=== PATIENT | female | born 1930 | race Caucasian/White ===

== ENCOUNTER 2018-05-01 13:07 | Inpatient (IN) | payer MEDICARE, OTHER ==
[2018-05-01] VITALS (22 sets, daily range): BP systolic 84–112; BP diastolic 35–50; PULSE 82–105; RESP 13–22; TEMP 98.5–99.9; O2SAT 93–98
[~2018-05-01] VITALS: Ht 165.1 cm; Wt 68.4 kg
[2018-05-01] MEDS ORDERED: PIPERACIL-TAZO 4.5 GM PREMIX 100 ML IV STA (13:18)
[2018-05-01] MEDS ORDERED: VANCOMYCIN INJ 1,000 MG in SODIUM CHLOR 0.9% 250 ML INJ 250 ML IV STA (13:18)
[2018-05-01] MEDS ORDERED: SODIUM CHLOR 0.9% 1000 ML INJ 1,000 ML IV ONE ×3 (13:30→22:15)
[2018-05-01] MEDS ORDERED: ACETAMINOPHEN 325 MG TAB PO ONE ×2 (13:30→13:45)
--- NOTE | 2018-05-01 13:30 | PD ---
HPI Chief Complaint: General Weakness Time Seen by Provider: 13:11 Travel History International Travel<30 days: No Contact w/Intl Traveler<30days: No Traveled to known affect area: No History of Present Illness HPI 87 y/o female presents with generalized weakness. She states this morning she had an episode of nonbloody vomiting. She denies any specific pain or other concurrent complaints other than feeling off. In the ambulance she had a fever. She states she did not really she had a fever. She denies specific modifying factors. She denies recurrent history of this. Patient is a poor historian. [facility] Past Medical History High Cholesterol: Yes Coronary Artery Disease: Yes Hypertension: Yes Influenza Vaccination: No ?: Not Past Surgical History Coronary Artery Bypass Graft: Yes Joint Replacement: Yes (KNEE) Social History Alcohol Use: No Tobacco Use: No Substance Use: No Allergies-Medications (Allergen,Severity, Reaction): Coded Allergies: No Known Allergies (Unverified , 05/01/18) Reported Meds & Prescriptions Reported Meds & Active Scripts Active Reported Aspirin 81 Mg Chew Unknown Dose CHEW DAILY Simvastatin 5 Mg Tab Unknown Dose PO DAILY Metoprolol Tartrate 25 Mg Tab Unknown Dose PO BID Furosemide 20 Mg Tab Unknown Dose PO BID Tramadol (Tramadol HCl) 50 Mg Tab Unknown Dose PO Q4H PRN Review of Systems Except as stated in HPI: all other systems reviewed are Neg Physical Exam Exam Limitations: Poor Historian Narrative GENERAL: 87-year-old female in no apparent distress SKIN: Focused skin assessment warm/dry. HEAD: Atraumatic. Normocephalic. EYES: Pupils equal and round. No scleral icterus. No injection or drainage. ENT: No nasal bleeding or discharge. Mucous membranes pink and moist. NECK: Trachea midline. CARDIOVASCULAR: Regular rate and rhythm. RESPIRATORY: No accessory muscle use. Clear to auscultation. Breath sounds equal bilaterally. GASTROINTESTINAL: Abdomen soft, non-tender, nondistended. MUSCULOSKELETAL: No obvious deformities. No clubbing. No cyanosis. NEUROLOGICAL: Awake. Moves all extremities. Normal speech. Data Data Last Documented VS Vital Signs Date Time Temp Pulse Resp B/P (MAP) Pulse Ox O2 Delivery O2 Flow Rate FiO2 05/01/18 16:07 98.7 96 16 96/49 (65) 94 Room Air Orders Orders Sepsis Workup Initiated (05/01/18 ) Electrocardiogram (05/01/18 13:11) Complete Blood Count With Diff (05/01/18 13:11) Comprehensive Metabolic Panel (05/01/18 13:11) Prothrombin Time / Inr (Pt) (05/01/18 13:11) Act Partial Throm Time (Ptt) (05/01/18 13:11) Lactic Acid Sepsis Protocol (05/01/18 13:11) Magnesium (Mg) (05/01/18 13:11) Phosphorus (Po4) (05/01/18 13:11) Urinalysis - C+S If Indicated (05/01/18 13:11) Blood Culture (05/01/18 13:11) Chest, Single Ap (05/01/18 13:11) Ecg Monitoring (05/01/18 13:11) Iv Access Insert/Monitor (05/01/18 13:11) Oximetry (05/01/18 13:11) B-Type Natriuretic Peptide (05/01/18 13:11) Vancomycin Inj (Vancomycin Inj) (05/01/18 13:18) Piperacil-Tazo 4.5 Gm Premix (Zosyn 4.5 (05/01/18 13:18) Sodium Chlor 0.9% 1000 Ml Inj (Ns 1000 M (05/01/18 13:30) Acetaminophen (Tylenol) (05/01/18 13:30) Ondansetron Odt (Zofran Odt) (05/01/18 13:45) Acetaminophen (Tylenol) (05/01/18 13:45) Cath For Specimen (05/01/18 14:20) Sodium Chlor 0.9% 1000 Ml Inj (Ns 1000 M (05/01/18 14:45) Urinary Catheter Insert/Apply (05/01/18 14:34) Ct Abd/Pel W Iv Contrast(Rout) (05/01/18 ) Urine Culture (05/01/18 14:50) Iodixanol 320 Inj (Rad Ct) (Visipaque 32 (05/01/18 15:41) Admit Order (Ed Use Only) (05/01/18 16:33) Place In Observation (05/01/18 ) Vital Signs (Adult) Q4H (05/01/18 16:33) Production Recorder / Telemetry .CONTINUOUS (05/01/18 16:33) Diet Heart Healthy (05/01/18 Dinner) Sodium Chlor 0.45% 1000 Ml Inj (1/2 Ns 1 (05/01/18 16:33) Sodium Chloride 0.9% Flush (Ns Flush) (05/01/18 16:45) Sodium Chloride 0.9% Flush (Ns Flush) (05/01/18 21:00) Acetaminophen (Tylenol) (05/01/18 16:45) Metoclopramide Inj (Reglan Inj) (05/01/18 16:45) Comprehensive Metabolic Panel (05/02/18 06:00) Complete Blood Count With Diff (05/02/18 06:00) Resp Oxygen Luiz C Titrat 1-4 L (05/01/18 ) Pt Request For Service (05/01/18 16:33) Scd Bilateral/Knee High STEVO.BID (05/01/18 16:33) Naloxone Inj (Narcan Inj) (05/01/18 16:45) Docusate Sodium-Senna (Amaya-Colace) (05/01/18 21:00) Magnesium Hydroxide Liq (Milk Of Magnesi (05/01/18 16:45) Sennosides (Senokot) (05/01/18 16:45) Bisacodyl Supp (Dulcolax Supp) (05/01/18 16:45) Lactulose Liq (Lactulose Liq) (05/01/18 16:45) Labs Laboratory Tests Test 05/01/18 13:10 05/01/18 13:15 05/01/18 14:50 White Blood Count 14.6 TH/MM3 Red Blood Count 2.84 MIL/MM3 Hemoglobin 9.0 GM/DL Hematocrit 26.8 % Mean Corpuscular Volume 94.5 FL Mean Corpuscular Hemoglobin 31.6 PG Mean Corpuscular Hemoglobin Concent 33.4 % Red Cell Distribution Width 13.2 % Platelet Count 226 TH/MM3 Mean Platelet Volume 8.4 FL Neutrophils (%) (Auto) 87.9 % Lymphocytes (%) (Auto) 2.2 % Monocytes (%) (Auto) 9.7 % Eosinophils (%) (Auto) 0.0 % Basophils (%) (Auto) 0.2 % Neutrophils # (Auto) 12.9 TH/MM3 Lymphocytes # (Auto) 0.3 TH/MM3 Monocytes # (Auto) 1.4 TH/MM3 Eosinophils # (Auto) 0.0 TH/MM3 Basophils # (Auto) 0.0 TH/MM3 CBC Comment DIFF FINAL Differential Comment Prothrombin Time 11.4 SEC Prothromb Time International Ratio 1.1 RATIO Activated Partial Thromboplast Time 24.3 SEC Blood Urea Nitrogen 37 MG/DL Creatinine 1.30 MG/DL Random Glucose 151 MG/DL Total Protein 6.8 GM/DL Albumin 3.5 GM/DL Calcium Level 9.0 MG/DL Phosphorus Level 2.0 MG/DL Magnesium Level 2.0 MG/DL Alkaline Phosphatase 59 U/L Aspartate Amino Transf (AST/SGOT) 25 U/L Alanine Aminotransferase (ALT/SGPT) 21 U/L Total Bilirubin 1.4 MG/DL Sodium Level 138 MEQ/L Potassium Level 3.5 MEQ/L Chloride Level 104 MEQ/L Carbon Dioxide Level 22.2 MEQ/L Anion Gap 12 MEQ/L Estimat Glomerular Filtration Rate 39 ML/MIN B-Type Natriuretic Peptide 208 PG/ML Lactic Acid Level 1.4 mmol/L Urine Collection Type CATH Urine Color YELLOW Urine Turbidity CLOUDY Urine pH 6.0 Urine Specific [place] 1.015 Urine Protein 100 mg/dL Urine Glucose (UA) NEG mg/dL Urine Ketones NEG mg/dL Urine Occult Blood LARGE Urine Nitrite NEG Urine Bilirubin NEG Urine Urobilinogen 0.2 MG/DL Urine Leukocyte Esterase SMALL Urine WBC 25-49 /hpf Urine WBC Clumps MOD Urine Squamous Epithelial Cells 0-2 /hpf Urine Bacteria MANY /hpf Microscopic Urinalysis Comment CULTURE INDICATED MDM Medical Decision Making Medical Screen Exam Complete: Yes Emergency Medical Condition: Yes Medical Record Reviewed: Yes (Past history confirmed) Interpretation(s) CBC & BMP Diagram 05/01/18 13:10 Total Protein 6.8, Albumin 3.5, Calcium Level 9.0, Phosphorus Level 2.0 L, Magnesium Level 2.0, Alkaline Phosphatase 59, Aspartate Amino Transf (AST/SGOT) 25, Alanine Aminotransferase (ALT/SGPT) 21, Total Bilirubin 1.4 H Last 24 hours Impressions Chest X-Ray 05/01/18 1311 Signed Impressions: CONCLUSION: Cardiomegaly with minimal basilar atelectasis or scarring. No effusion. No pneu mothorax. Differential Diagnosis UTI, URI, pneumonia, sepsis Narrative Course We will check blood work and dose with fluids and reevaluate ED workup with mild acute renal failure with sepsis and UTI no prior labs for comparison. Patient given fluids and broad-spectrum antibiotics and her blood pressure improved. CT added on to rule out other emergent process given hypotension ct no acute, will place in icu for close monitoring given hypotension Critical Care Narrative Aggregate critical care time was 35 minutes. Time to perform other separately billable procedures was not included in the critical care time. My time did not include minutes spent treating any other patients simultaneously or on activities that did not directly contribute to the patient's treatment. The services I provided to this patient were to treat and/or prevent clinically significant deterioration that could result in: Septic shock, I provided critical care services requiring my management, as noted below: Chart data review, documentation time, medication orders and management, vital sign assessments/reviewing monitor data, ordering and reviewing lab tests, ordering and interpreting/reviewing x-rays and diagnostic studies, care of the patient and discussion of the patient with the admitting physicians. Sepsis Criteria SIRS Criteria (2 or more): Heart rate over 90, WBC > 30993, < 4000 or > 10% bands Sepsis Criteria (SIRS+source): Infect source susp/known Severe Sepsis (+one): Hypotension Criteria Outcome: Meets severe sepsis criteria Physician Communication Physician Communication midlevel with dr rogers agrees to admit Diagnosis Primary Impression: Severe sepsis Additional Impressions: Renal failure Qualified Codes: N17.9 - Acute kidney failure, unspecified UTI (urinary tract infection) Qualified Codes: N39.0 - Urinary tract infection, site not specified Anemia Qualified Codes: D64.9 - Anemia, unspecified Admitting Information Admitting Physician Requests: it Irma Kerr MD May 01, 2018 13:30
[2018-05-01] MEDS ORDERED: METO25TA3 PO (13:34)
[2018-05-01] MEDS ORDERED: ASPI-516 CHEW (13:34)
[2018-05-01] MEDS ORDERED: TRAM50TA PO (13:34)
[2018-05-01] MEDS ORDERED: SIMV5TAB3 PO (13:34)
[2018-05-01] MEDS ORDERED: FURO20TA PO (13:34)
[2018-05-01] MEDS ORDERED: ONDANSETRON ODT 4 MG TAB PO ONE (13:45)
[2018-05-01 13:46] LABS: AUTOMATED NEUTROPHIL # 12.9 TH/MM3 (1.8-7.7); BASOPHIL % 0.2 % (0.0-2.0); HEMATOCRIT 26.8 % (35.0-46.0); LYMPH % 2.2 % (9.0-44.0); LYMPHOCYTE # 0.3 TH/MM3 (1.0-4.8); MEAN CELL VOLUME 94.5 FL (80.0-100.0); MEAN CORPUSCULAR HEMOGLOBIN 31.6 PG (27.0-34.0); MEAN CORPUSCULAR HGB CONC 33.4 % (32.0-36.0); MEAN PLATELET VOLUME 8.4 FL (7.0-11.0); MONO % 9.7 % (0.0-8.0); MONOCYTE # 1.4 TH/MM3 (0-0.9); NEUT % 87.9 % (16.0-70.0); PLATELET COUNT 226 TH/MM3 (150-450); RED BLOOD COUNT 2.84 MIL/MM3 (4.00-5.30); RED CELL DISTRIBUTION WIDTH 13.2 % (11.6-17.2); WHITE BLOOD COUNT 14.6 TH/MM3 (4.0-11.0)
--- NOTE | 2018-05-01 13:50 | RADRPT ---
EXAM DATE: 05/01/2018 1:43 PM EDT AGE/SEX: 87 years / Female INDICATIONS: Short of breath, fever, weakness CLINICAL DATA: This is the patient's initial encounter. Patient reports that signs and symptoms have been present for 1 day and indicates a pain score of 0/10. MEDICAL/SURGICAL HISTORY: Cerebrovascular disease. CABG. COMPARISON: No prior exams available for comparison. FINDINGS: Minimal basilar atelectasis or scarring. Cardiomegaly. Previous sternotomy. Bilateral shoulder replac ement. CONCLUSION: Cardiomegaly with minimal basilar atelectasis or scarring. No effusion. No pneumothorax. Electronically signed by: Alex Santana MD 05/01/2018 1:49 PM EDT
[2018-05-01 14:11] LABS: CHLORIDE 104 MEQ/L (98-107); SODIUM (NA) 138 MEQ/L (136-145)
[2018-05-01 14:15] LABS: INTERNATIONAL NORMALIZED RATIO 1.1 RATIO; PROTHROMBIN TIME - PATIENT 11.4 SEC (9.8-11.6)
[2018-05-01 14:16] LABS: ALBUMIN 3.5 GM/DL (3.4-5.0)
[2018-05-01 14:17] LABS: BICARBONATE 22.2 MEQ/L (21.0-32.0); BLOOD UREA NITROGEN 37 MG/DL (7-18); GLUCOSE,RANDOM 151 MG/DL (74-106)
[2018-05-01 14:19] LABS: ALT (GPT) 21 U/L (10-53)
[2018-05-01 14:20] LABS: AST (GOT) 25 U/L (15-37); GLOMERULAR FILTRATION RATE 39 ML/MIN (>89)
[2018-05-01 14:21] LABS: TOTAL BILIRUBIN ADULT 1.4 MG/DL (0.2-1.0); TOTAL PROTEIN 6.8 GM/DL (6.4-8.2)
[2018-05-01 14:22] LABS: ALKALINE PHOSPHATASE 59 U/L (45-117)
[2018-05-01 15:17] LABS: BILIRUBIN, URINE NEG (NEG); BLOOD, URINE LARGE (NEG); GLUCOSE,URINE NEG (NEG); KETONE, URINE NEG (NEG); NITRITE,URINE NEG (NEG); URINE COLOR YELLOW (YELLW/STRAW); URINE LEUKOCYTE ESTERASE SMALL (NEG)
[2018-05-01 15:35] LABS: BACTERIA, URINE MANY /hpf; SQUAMOUS EPITHELIAL CELL URINE 0-2 /hpf (0-5); WHITE BLOOD CELL CLUMPS MOD
[2018-05-01] MEDS ORDERED: IODIXANOL 320 MG/ML 10 ML VIAL (for Rad CT) IVCONTRAST ONE (15:41)
--- NOTE | 2018-05-01 16:13 | RADRPT ---
EXAM DATE: 05/01/2018 3:40 PM EDT AGE/SEX: 87 years / Female INDICATIONS: General weakness. Nausea, vomiting and fever. CLINICAL DATA: This is the patient's initial encounter. Patient reports that signs and symptoms have been present for 1 day and indicates a pain score of 0/10. MEDICAL/SURGICAL HISTORY: Cardiovascular disease. Hypertension. CABG. ORAL CONTRAST: No oral contrast ingested. RADIATION DOSE: 11.34 CTDI (mGy) COMPARISON: No prior exams available for comparison. TECHNIQUE: Multiple contiguous axial images were obtained through the abdomen and pelvis following b olus infusion of 50 ml Visipaque 320 (iodixanol) nonionic water-soluble contrast as a single exam d ose. No oral contrast ingested. Using automated exposure control and adjustment of the mA and/or kV according to patient size, the radiation dose was kept as low as reasonably achievable to obtain opti mal diagnostic quality images. FINDINGS: There is minimal basilar atelectasis. Previous sternotomy. Heart size enlarged. No acute findings in the liver, spleen, adrenals or pancreas. Bilateral renal cysts. No bowel obstruction. No free air or free fluid. There is colonic diverticulosis without evidence for diverticulitis. Bilateral hip replacement. Winter catheter in the bladder. 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 CONCLUSION: 1. No acute findings. Colonic diverticulosis. Advanced degenerative changes in the spine. No obstruc tive uropathy or bowel obstruction identified. Previous bilateral hip replacement. Electronically signed by: Alex Santana MD 05/01/2018 4:12 PM EDT
[2018-05-01] MEDS ORDERED: METOCLOPRAMIDE HCL 10 MG/2 ML VIAL IV PUSH PRN (16:45)
[2018-05-01] MEDS ORDERED: ACETAMINOPHEN 325 MG TAB PO PRN (16:45)
[2018-05-01] MEDS ORDERED: MAGNESIUM HYDROXIDE SUSP 30 ML CUP PO PRN (16:45)
[2018-05-01] MEDS ORDERED: NALOXONE HCL 0.4 MG/ML AMP IV PUSH PRN (16:45)
[2018-05-01] MEDS ORDERED: SENNOSIDES 8.6 MG TAB PO PRN (16:45)
[2018-05-01] MEDS ORDERED: BISACODYL 10 MG SUPP RECTAL PRN (16:45)
[2018-05-01] MEDS ORDERED: LACTULOSE SYRUP 20 GM/30 ML CUP PO PRN (16:45)
[2018-05-01] MEDS ORDERED: SODIUM CHLORIDE 0.9% FLUSH 10 ML FLUSH IV FLUSH PRN (16:45)
--- NOTE | 2018-05-01 17:16 | HHI.HP ---
[facility] Primary Care Physician Unknown Admission Diagnosis Sepsis, uti, anemia Diagnoses: (1) Severe sepsis (2) UTI (urinary tract infection) (3) Anemia Chief Complaint: Weakness Travel History International Travel<30 Days: No Contact w/Intl Traveler <30 Da: No Traveled to Known Affected Are: No Sepsis Criteria SIRS Criteria (2 or more): Heart rate over 90, WBC > 79459, < 4000 or > 10% bands Sepsis Criteria (SIRS+source): Infect source susp/known Severe Sepsis (+one): Acute Oliguria/Renal Failure Criteria Outcome: Meets sepsis criteria History of Present Illness This is a pleasant 87-year-old female patient visiting her son from [place] who presented to the ED with generalized weakness. Patient states that she woke up this morning, had presence of chills and violent rigors, subjective fever, decreased appetite, nausea, vomiting and generalized weakness. Son at bedside and assisting with medical history. Supposedly patient was in the bathroom this morning, had one bout of emesis as well as inability to stand up from toilet due to weakness in her legs. Prior to this morning's episodes patient has been feeling at her baseline, completely independent and able to perform all ADLs per self. Patient does admit to poor appetite today and unable to keep anything down without nausea. Patient denies any recent dysuria , diarrhea, bloody stools or black stools. 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 Upon presentation patient's hemoglobin 9.0, patient denies any history of anemia although she vaguely remembers that she may have "low blood levels in the past". Does admit to a history of E. coli in her stool in the past. Past Family Social History Past Medical History Hyperlipidemia CAD with history of CABG Hypertension History of ovarian cancer Past Surgical History Bilateral hip replacement Bilateral shoulder repair Bilateral knee replacement CABG 4 years ago Reported Medications Active Reported Aspirin 81 Mg Chew Unknown Dose CHEW DAILY Simvastatin 5 Mg Tab Unknown Dose PO DAILY Metoprolol Tartrate 25 Mg Tab Unknown Dose PO BID Furosemide 20 Mg Tab Unknown Dose PO BID Tramadol (Tramadol HCl) 50 Mg Tab Unknown Dose PO Q4H PRN Allergies: Coded Allergies: No Known Allergies (Unverified , 05/01/18) Active Ordered Medications Current Medications Medications (Trade) Dose Ordered Sig/Adina Route Start Time Stop Time Status Last Admin Sodium Chloride 1,000 ml @ 75 mls/hr [id number] IV 05/01/18 16:33 UNV (NS Flush) 2 ml UNSCH PRN IV FLUSH 05/01/18 16:45 UNV (NS Flush) 2 ml BID IV FLUSH 05/01/18 21:00 UNV (Tylenol) 650 mg Q4H PRN PO 05/01/18 16:45 UNV (Reglan Inj) 5 mg Q6H PRN IV PUSH 05/01/18 16:45 UNV (Narcan Inj) 0.4 mg UNSCH PRN IV PUSH 05/01/18 16:45 UNV (Amaya-Colace) 1 tab BID PO 05/01/18 21:00 UNV (Milk Of Magnesia Liq) 30 ml Q12H PRN PO 05/01/18 16:45 UNV (Senokot) 17.2 mg Q12H PRN PO 05/01/18 16:45 UNV (Dulcolax Supp) 10 mg DAILY PRN RECTAL 05/01/18 16:45 UNV (Lactulose Liq) 30 ml DAILY PRN PO 05/01/18 16:45 UNV Vancomycin HCl 1000 mg/Sodium Chloride 250 ml @ 250 mls/hr Q24H IV 05/02/18 16:45 UNV Piperacillin Sod/ Tazobactam Sod 50 ml @ 100 mls/hr Q6H IV 05/01/18 16:45 UNV Family History Family history reviewed, noncontributory. Social History Patient denies any previous or current tobacco abuse, alcohol or illicit drug use. Physical Exam Vital Signs Vital Signs Date Time Temp Pulse Resp B/P (MAP) Pulse Ox O2 Delivery O2 Flow Rate FiO2 05/01/18 16:45 93 16 100/49 (66) 96 05/01/18 16:45 Room Air 05/01/18 16:07 98.7 96 16 96/49 (65) 94 Room Air 05/01/18 14:55 95 16 102/48 (66) 93 Room Air 05/01/18 14:39 99.9 90 18 89/43 (58) 94 Room Air 05/01/18 13:23 95 05/01/18 13:17 99.5 105 18 112/48 (69) 96 Physical Exam GENERAL: Well-developed, well-nourished elderly frail female patient in [facility]. SKIN: Cool and dry. No rash. HEAD: Normocephalic. Atraumatic. EYES: Pupils equal and round. No scleral icterus. No injection or drainage. ENT: No nasal bleeding or discharge. Mucous membranes pink and moist. NECK: Supple. Trachea midline. CARDIOVASCULAR: Sinus tachycardia. S1, S2 noted. RESPIRATORY: No accessory muscle use. Diminished breath sounds. Breath sounds equal bilaterally. GASTROINTESTINAL: Abdomen soft, non-tender, nondistended. Normoactive bowel sounds x4. : No CVA tenderness. MUSCULOSKELETAL: No obvious deformities. Extremities without clubbing, cyanosis , or edema. NEUROLOGICAL: Awake and alert. No obvious cranial nerve deficits. Motor grossly within normal limits. 4/5 muscle strength in bilateral lower extremities. 5 out of 5 muscle strength in bilateral upper extremities. Normal speech. PSYCHIATRIC: Appropriate mood and affect; insight and judgment normal. Laboratory Laboratory Tests Test 05/01/18 13:10 05/01/18 13:15 05/01/18 14:50 White Blood Count 14.6 Red Blood Count 2.84 Hemoglobin 9.0 Hematocrit 26.8 Mean Corpuscular Volume 94.5 Mean Corpuscular Hemoglobin 31.6 Mean Corpuscular Hemoglobin Concent 33.4 Red Cell Distribution Width 13.2 Platelet Count 226 Mean Platelet Volume 8.4 Neutrophils (%) (Auto) 87.9 Lymphocytes (%) (Auto) 2.2 Monocytes (%) (Auto) 9.7 Eosinophils (%) (Auto) 0.0 Basophils (%) (Auto) 0.2 Neutrophils # (Auto) 12.9 Lymphocytes # (Auto) 0.3 Monocytes # (Auto) 1.4 Eosinophils # (Auto) 0.0 Basophils # (Auto) 0.0 CBC Comment DIFF FINAL Differential Comment Prothrombin Time 11.4 Prothromb Time International Ratio 1.1 Activated Partial Thromboplast Time 24.3 Blood Urea Nitrogen 37 Creatinine 1.30 Random Glucose 151 Total Protein 6.8 Albumin 3.5 Calcium Level 9.0 Phosphorus Level 2.0 Magnesium Level 2.0 Alkaline Phosphatase 59 Aspartate Amino Transf (AST/SGOT) 25 Alanine Aminotransferase (ALT/SGPT) 21 Total Bilirubin 1.4 Sodium Level 138 Potassium Level 3.5 Chloride Level 104 Carbon Dioxide Level 22.2 Anion Gap 12 Estimat Glomerular Filtration Rate 39 B-Type Natriuretic Peptide 208 Lactic Acid Level 1.4 Urine Collection Type CATH Urine Color YELLOW Urine Turbidity CLOUDY Urine pH 6.0 Urine Specific [place] 1.015 Urine Protein 100 Urine Glucose (UA) NEG Urine Ketones NEG Urine Occult Blood LARGE Urine Nitrite NEG Urine Bilirubin NEG Urine Urobilinogen 0.2 Urine Leukocyte Esterase SMALL Urine WBC 25-49 Urine WBC Clumps MOD Urine Squamous Epithelial Cells 0-2 Urine Bacteria MANY Microscopic Urinalysis Comment CULTURE INDICATED Date/Time Source Procedure Growth Status 05/01/18 13:15 Blood Peripheral Aerobic Blood Culture Pending Received 05/01/18 13:15 Blood Peripheral Anaerobic Blood Culture Pending Received 05/01/18 14:50 Urine Catheterized Urine Urine Culture Pending Received Result Diagram: 05/01/18 1310 05/01/18 1310 Imaging Last Impressions Chest X-Ray 05/01/18 1311 Signed Impressions: CONCLUSION: Cardiomegaly with minimal basilar atelectasis or scarring. No effusion. No pneu mothorax. Abdomen/Pelvis CT 05/01/18 0000 Signed Impressions: CONCLUSION: 1. No acute findings. Colonic diverticulosis. Advanced degenerative changes in the spine. No obstructive uropathy or bowel obstruction identified. Previous b ilateral hip replacement. Septic Shock Reassessment Septic shock perfusion: reassessment completed Caprini VTE Risk Assessment Caprini VTE Risk Assessment: Mod/High Risk (score >= 2) Caprini Risk Assessment Model Point Value = 1 Point Value = 2 Point Value = 3 Point Value = 5 Age 41-60 Minor surgery BMI > 25 kg/m2 Swollen legs Varicose veins or History of unexplained or recurrent spontaneous Oral contraceptives or hormone replacement Sepsis (< 1 month) Serious lung disease, including pneumonia (< 1 month) Abnormal pulmonary function Acute myocardial infarction Congestive heart failure (< 1 month) History of inflammatory bowel disease Medical patient at bed rest Age 61-74 Arthroscopic surgery Major open surgery (> 45 min) Laparoscopic surgery (> 45 min) Malignancy Confined to bed (> 72 hours) Immobilizing plaster cast Central venous access Age >= 75 History of VTE Family history of VTE Factor V Leiden Prothrombin [id number] Lupus anticoagulant Anticardiolipin antibodies Elevated serum homocysteine Heparin-induced thrombocytopenia Other congenital or acquired thrombophilia Stroke (< 1 month) Elective arthroplasty Hip, pelvis, or leg fracture Acute spinal cord injury (< 1 month) Prophylaxis Regimen Total Risk Factor Score Risk Level Prophylaxis Regimen 0-1 Low Early ambulation 2 Moderate Order ONE of the following: *Sequential Compression Device (SCD) *Heparin 5000 units SQ BID 3-4 Higher Order ONE of the following medications: *Heparin 5000 units SQ TID *Enoxaparin/Lovenox 40 mg SQ daily (WT < 150 kg, CrCl > 30 mL/min) *Enoxaparin/Lovenox 30 mg SQ daily (WT < 150 kg, CrCl > 10-29 mL/min) *Enoxaparin/Lovenox 30 mg SQ BID (WT < 150 kg, CrCl > 30 mL/min) AND/OR *Sequential Compression Device (SCD) 5 or more Highest Order ONE of the following medications: *Heparin 5000 units SQ TID (Preferred with Epidurals) *Enoxaparin/Lovenox 40 mg SQ daily (WT < 150 kg, CrCl > 30 mL/min) *Enoxaparin/Lovenox 30 mg SQ daily (WT < 150 kg, CrCl > 10-29 mL/min) *Enoxaparin/Lovenox 30 mg SQ BID (WT < 150 kg, CrCl > 30 mL/min) AND *Sequential Compression Device (SCD) Assessment and Plan Problem List: (1) Severe sepsis ICD Code: A41.9 - Sepsis, unspecified organism; R65.20 - Severe sepsis without septic shock Status: Acute (2) UTI (urinary tract infection) ICD Code: N39.0 - Urinary tract infection, site not specified Status: Acute (3) Renal failure ICD Code: N19 - Unspecified kidney failure Status: Acute (4) Anemia ICD Code: D64.9 - Anemia, unspecified Status: Acute Assessment and Plan This is a pleasant 87-year-old female patient visiting her son from [place] who presented to the ED with generalized weakness. Patient states that she woke up this morning, had presence of chills and violent rigors, subjective fever, decreased appetite, nausea, vomiting and generalized weakness. Severe sepsis Meet sepsis criteria with leukocytosis, white blood cell 14.6 with bandemia, tachycardia and suspected source UTI Abnormal UA with presence of leukocyte esterase and white blood cells with bacteria. Acute kidney injury suspect secondary to above as well as dehydration/poor p.o. intake and vomiting - Sepsis protocol in place. Lactic acid 1.4. Patient given 2 L NS bolus in ED. Will ensure hydration, continue IV fluid. Monitor for overload. Encourage p.o. intake. - Chest x-ray reviewed showing cardiomegaly with no effusion or pneumothorax. - Abdomen/pelvis CT reviewed showing colonic diverticulosis. Degenerative changes. No obstructive uropathy or bowel obstruction. No acute findings. - Patient was given Zosyn and vancomycin IV in ED. Will continue. Pharmacy consult for vancomycin management. - Blood cultures ordered and pending. Follow growth. Low-grade temperatures T- max 99.9. Monitor overnight. - Acetaminophen for fever. - PT eval ordered, input and recommendations pending. - No history of kidney disease in the past. Will hydrate and follow BMP. Creatinine 1.3, GFR 39 upon presentation. Normocytic, normochromic anemia suspect secondary to anemia of chronic disease - There is questionable history of anemia in the past. - Will order iron studies. Follow. As well as Hemoccult stool. Follow. - Follow H&H in a.m. Hypertension, chronic: Will hold home medications for now. Patient is with labile blood pressures and hypotension. Continue to monitor trends. History of CAD with CABG: Will continue cardiac telemetry, monitor for any arrhythmias. DVT prophylaxis: SCDs. Will rule out GI bleed, hold chemical prophylaxis for now. Reassess in a.m. Code Status Full code Discussed Condition With Patient and son. Son's number - [phone] Problem Qualifiers (1) UTI (urinary tract infection): Qualified Codes: N39.0 - Urinary tract infection, site not specified (2) Anemia: Qualified Codes: D64.9 - Anemia, unspecified (3) Renal failure: Qualified Codes: N17.9 - Acute kidney failure, unspecified Safia Cabrera May 01, 2018 17:16
[2018-05-01] MEDS ORDERED: POTASSIUM PHOSPHATE MONOBASIC 500 MG TAB PO/TUBE PRN (17:30)
[2018-05-01] MEDS ORDERED: POTASSIUM CHLORIDE 25 MEQ EFFERVESCENT TAB PO PRN (17:30)
[2018-05-01] MEDS ORDERED: MAGNESIUM OXIDE 400 MG TAB PO PRN (17:30)
[2018-05-01] MEDS ORDERED: MAGNESIUM SULFATE INJ 2 GM in SODIUM CHLORIDE 0.9% INJ 96 ML IV PRN (17:30)
[2018-05-01] MEDS ORDERED: POTASSIUM PHOSPHATE INJ 30 MMOL in SODIUM CHLOR 0.9% 250 ML INJ 250 ML IV PRN (17:30)
[2018-05-01] MEDS ORDERED: POTASSIUM CHLOR 40 MEQ PREMIX 100 ML IV PRN ×2 (17:30)
[2018-05-01] MEDS ORDERED: POTASSIUM CHLOR 20 MEQ PREMIX 100 ML IV PRN ×2 (17:30)
[2018-05-01] MEDS ORDERED: MAGNESIUM SULFATE INJ 4 GM in SODIUM CHLORIDE 0.9% INJ 92 ML IV PRN (17:30)
[2018-05-01] MEDS ORDERED: SODIUM PHOSPHATE INJ 30 MMOL in SODIUM CHLOR 0.9% 250 ML INJ 240 ML IV PRN (17:30)
[2018-05-01] MEDS ORDERED: POTASSIUM PHOSPHATE MONOBASIC 500 MG TAB PO PRN (17:30)
[2018-05-01] MEDS: SODIUM CHLOR 0.45% 1000 ML INJ 1,000 ML IV SCH (18:43)
[2018-05-01 20:19] LABS: % SATURATION IRON PROFILE 3.8 % (20-50); IRON (FE) 10 MCG/DL (50-170); TOTAL IRON BINDING CAPACITY 266 MCG/DL (250-450)
[2018-05-01 20:22] LABS: FERRITIN 270 NG/ML (8-252)
[2018-05-01] MEDS: SODIUM CHLORIDE 0.9% FLUSH 10 ML FLUSH IV FLUSH SCH (20:54)
[2018-05-01] MEDS: DOCUSATE SODIUM 50 MG/SENNA 8.6 MG TAB PO SCH (20:54)
[2018-05-01] MEDS: PIPERACIL-TAZO 2.25 GM PREMIX 50 ML IV SCH (20:57)
[2018-05-02] VITALS (51 sets, daily range): BP systolic 87–181; BP diastolic 42–100; PULSE 64–98; RESP 9–30; TEMP 98–98.9; O2SAT 95–100
[2018-05-02] MEDS: PIPERACIL-TAZO 2.25 GM PREMIX 50 ML IV SCH ×4 (01:40→19:40)
[2018-05-02] MEDS: SODIUM CHLOR 0.45% 1000 ML INJ 1,000 ML IV SCH ×2 (05:25→10:14)
[2018-05-02] MEDS ORDERED: ACETAMINOPHEN 500 MG CPLT PO ONE (07:15)
[2018-05-02 07:40] LABS: AUTOMATED NEUTROPHIL # 7.2 TH/MM3 (1.8-7.7); BASOPHIL # 0.1 TH/MM3 (0-0.2); BASOPHIL % 0.7 % (0.0-2.0); EOSINOPHIL # 0.1 TH/MM3 (0-0.4); EOSINOPHIL % 1.3 % (0.0-4.0); HEMATOCRIT 22.3 % (35.0-46.0); HEMOGLOBIN 7.6 GM/DL (11.6-15.3); LYMPH % 11.5 % (9.0-44.0); LYMPHOCYTE # 1.1 TH/MM3 (1.0-4.8); MEAN CELL VOLUME 95.1 FL (80.0-100.0); MEAN CORPUSCULAR HEMOGLOBIN 32.3 PG (27.0-34.0); MEAN PLATELET VOLUME 8.7 FL (7.0-11.0); MONO % 12.8 % (0.0-8.0); MONOCYTE # 1.3 TH/MM3 (0-0.9); NEUT % 73.7 % (16.0-70.0); PLATELET COUNT 177 TH/MM3 (150-450); RED BLOOD COUNT 2.35 MIL/MM3 (4.00-5.30); RED CELL DISTRIBUTION WIDTH 13.4 % (11.6-17.2); WHITE BLOOD COUNT 9.8 TH/MM3 (4.0-11.0)
[2018-05-02 07:46] LABS: CHLORIDE 109 MEQ/L (98-107); SODIUM (NA) 140 MEQ/L (136-145)
[2018-05-02] MEDS: SODIUM CHLORIDE 0.9% FLUSH 10 ML FLUSH IV FLUSH SCH ×2 (08:02→21:04)
[2018-05-02] MEDS: DOCUSATE SODIUM 50 MG/SENNA 8.6 MG TAB PO SCH ×2 (08:02→21:03)
[2018-05-02 08:03] LABS: ALBUMIN 2.6 GM/DL (3.4-5.0); ALKALINE PHOSPHATASE 58 U/L (45-117); ALT (GPT) 66 U/L (10-53); AST (GOT) 71 U/L (15-37); BICARBONATE 22.4 MEQ/L (21.0-32.0); BLOOD UREA NITROGEN 32 MG/DL (7-18); CALCIUM 7.5 MG/DL (8.5-10.1); GLOMERULAR FILTRATION RATE 39 ML/MIN (>89); GLUCOSE,RANDOM 83 MG/DL (74-106); PHOSPHORUS 4.3 MG/DL (2.5-4.9); TOTAL BILIRUBIN ADULT 0.6 MG/DL (0.2-1.0); TOTAL PROTEIN 5.6 GM/DL (6.4-8.2)
[2018-05-02] MEDS ORDERED: SODIUM CHLOR 0.9% 250 ML INJ 250 ML IV ONE (08:15)
[2018-05-02] MEDS ORDERED: ACETAMINOPHEN 325 MG TAB PO PRN (08:15)
--- NOTE | 2018-05-02 08:19 | HHI.PR ---
Subjective Remarks Patient seen in follow-up for sepsis secondary to urinary tract infection. Blood pressure improved. Patient feels a bit stronger. Still awaiting cultures. Care plan discussed with CROWNING INSPECTOR Patient complaining of some shortness of breath, oxygenation respiratory rate great Objective Vitals Vital Signs Date Time Temp Pulse Resp B/P (MAP) Pulse Ox O2 Delivery O2 Flow Rate FiO2 05/02/18 06:00 86 05/02/18 05:00 80 05/02/18 04:00 83 05/02/18 03:01 86 20 103/42 (62) 95 05/02/18 03:00 86 05/02/18 02:01 86 20 121/62 (81) 98 05/02/18 02:00 87 05/02/18 01:00 87 05/02/18 00:01 98.0 84 21 117/54 (75) 97 05/02/18 00:00 85 05/01/18 23:01 82 20 103/42 (62) 95 05/01/18 23:00 85 05/01/18 22:03 82 21 87/43 (58) 94 05/01/18 22:01 82 22 85/44 (58) 95 05/01/18 22:00 83 05/01/18 21:01 86 20 98/44 (62) 94 05/01/18 21:00 83 05/01/18 20:34 98 21 05/01/18 20:05 88 21 89/39 (56) 96 05/01/18 20:04 98.5 88 18 87/35 (52) 98 05/01/18 20:00 90 05/01/18 19:00 90 05/01/18 18:01 84 13 95/41 (59) 98 05/01/18 18:01 84 05/01/18 18:00 86 05/01/18 17:59 98.5 86 15 84/38 (53) 98 05/01/18 17:59 86 05/01/18 17:46 05/01/18 17:26 89 16 104/50 (68) 94 Room Air 05/01/18 16:45 93 16 100/49 (66) 96 05/01/18 16:45 Room Air 05/01/18 16:07 98.7 96 16 96/49 (65) 94 Room Air 05/01/18 14:55 95 16 102/48 (66) 93 Room Air 05/01/18 14:39 99.9 90 18 89/43 (58) 94 Room Air 05/01/18 13:23 95 05/01/18 13:17 99.5 105 18 112/48 (69) 96 I/O 05/01/18 05/01/18 05/01/18 05/02/18 05/02/18 05/02/18 07:00 15:00 23:00 07:00 15:00 23:00 Intake Total 1100 ml 1590 ml 3967 ml Output Total 450 ml 725 ml Balance 1100 ml 1140 ml 3242 ml Intake Oral 340 ml 480 ml IV Total 1100 ml 1250 ml 3487 ml Output Urine Total 450 ml 725 ml # Bowel Movements 0 0 Result Diagram: 05/02/18 0545 05/02/18 0545 Imaging Last Impressions Chest X-Ray 05/01/18 1311 Signed Impressions: CONCLUSION: Cardiomegaly with minimal basilar atelectasis or scarring. No effusion. No pneu mothorax. Abdomen/Pelvis CT 05/01/18 0000 Signed Impressions: CONCLUSION: 1. No acute findings. Colonic diverticulosis. Advanced degenerative changes in the spine. No obstructive uropathy or bowel obstruction identified. Previous b ilateral hip replacement. Objective Remarks GENERAL: This is a well-nourished, well-developed patient, in no apparent distress. CARDIOVASCULAR: Regular rate and rhythm with systolic murmur RESPIRATORY: Clear to auscultation. Breath sounds equal bilaterally. No wheezes , rales, or rhonchi. GASTROINTESTINAL: Abdomen soft, non-tender, nondistended. Normal active bowel sounds MUSCULOSKELETAL: Extremities without clubbing, cyanosis, or edema. NEURO: Alert & Oriented x4 to person, place, time, situation. Moves all ext x4 A/P Problem List: (1) Severe sepsis ICD Code: A41.9 - Sepsis, unspecified organism; R65.20 - Severe sepsis without septic shock Status: Acute Plan: Secondary to urinary tract infection Patient with leukocytosis and hypotension and acute kidney injury Continue treating infection and follow-up cultures Continue empiric vancomycin and Zosyn (2) UTI (urinary tract infection) ICD Code: N39.0 - Urinary tract infection, site not specified Status: Acute (3) Renal failure ICD Code: N19 - Unspecified kidney failure Status: Acute Plan: This appears to be acute kidney injury probably due to urinary tract infection versus dehydration. Patient also hypotensive and may have some prerenal azotemia Continue to follow Renal ultrasound pending (4) Anemia ICD Code: D64.9 - Anemia, unspecified Status: Acute Plan: Severe iron deficiency anemia IV iron x3d Acute without evidence of acute blood loss Hemoglobin 7.6 this morning and patient still quite hypotensive We will transfuse 1 unit and follow clinically (5) Murmur, cardiac ICD Code: R01.1 - Cardiac murmur, unspecified Plan: Patient with a history of coronary disease, follow-up echocardiogram Follow-up blood cultures Patient does not recall a murmur and her history Discharge Planning Home 1-2 days pending progress Problem Qualifiers (1) UTI (urinary tract infection): Qualified Codes: N39.0 - Urinary tract infection, site not specified (2) Renal failure: Qualified Codes: N17.9 - Acute kidney failure, unspecified (3) Anemia: Qualified Codes: D64.9 - Anemia, unspecified Eva Jose MD May 02, 2018 08:19
[2018-05-02] MEDS: IRON SUCROSE INJ 100 MG in SODIUM CHLORIDE 0.9% INJ 100 ML IV SCH (10:33)
[2018-05-02] MEDS ORDERED: VANCOMYCIN 1 GM/200 ML INJ 200 ML IV SCH (13:00)
--- NOTE | 2018-05-02 13:58 | EKG ---
Date Performed: 05/01/2018 Time Performed: 13:18:53 PTAGE: 87 years EKG: SINUS TACHYCARDIA WITH FIRST DEGREE AV BLOCK MARKED LEFT AXIS DEVIATION NONSPECIFIC T-WAVE ABNORMALITY ABNORMAL ECG NO PREVIOUS TRACING DOCTOR: Rico Nassar Interpretating Date/Time 05/02/2018 13:47:58
--- NOTE | 2018-05-02 15:17 | RADRPT ---
EXAM DATE: 05/02/2018 3:00 PM EDT AGE/SEX: 87 years / Female INDICATIONS: Increased BUN/Creatinine. CLINICAL DATA: This is the patient's initial encounter. Patient reports that signs and symptoms have been present for 1 day and indicates a pain score of 0/10. MEDICAL/SURGICAL HISTORY: Hypercholesterolemia. Gastroesophageal reflux disease. Hypertension . Hearing loss. Coronary artery disease. Ulcer. Arthritis. Uterine cancer. Chemotherapy. Osteoporosi s. Blood transfusion. Sepsis. Acute renal failure. CABG. Hysterectomy. Bilateral hip replacement. B ilateral knee replacement. Bilateral shoulder repair. COMPARISON: No prior exams available for comparison. MEASUREMENTS: Right Kidney:__10.1 x 4.9 x 4.7 cm cm Left Kidney:__11.1 x 5.6 x 5.1 cm cm FINDINGS: Small bilateral pleural effusions. Right Kidney: No evidence of mass or hydronephrosis. 1.5 cm simple cyst cortex of the lower pole. Left Kidney: No evidence of hydronephrosis. Dominant cystic lesion in the midpole measuring 3.9 x 4.3 x 2.9 cm and demonstrates through transmission and is hypoechoic. Bladder: Winter catheter within a nondistended bladder. CONCLUSION: 1. Bilateral renal cysts. No solid lesions or hydronephrosis. Electronically signed by: Lei Chavez MD 05/02/2018 3:16 PM EDT
[2018-05-03] VITALS (15 sets, daily range): BP systolic 129–168; BP diastolic 62–77; PULSE 78–96; RESP 21–24; TEMP 97.6–99.2; O2SAT 95–97
[2018-05-03] MEDS ORDERED: traMADol HCL 50 MG TAB PO ONE
[2018-05-03] MEDS ORDERED: cloNIDine HCL 0.1 MG TAB PO PRN
[2018-05-03] MEDS: PIPERACIL-TAZO 2.25 GM PREMIX 50 ML IV SCH ×4 (02:16→20:33)
[2018-05-03 05:13] LABS: AUTOMATED NEUTROPHIL # 5.4 TH/MM3 (1.8-7.7); BASOPHIL # 0.1 TH/MM3 (0-0.2); BASOPHIL % 0.6 % (0.0-2.0); EOSINOPHIL # 0.4 TH/MM3 (0-0.4); EOSINOPHIL % 4.4 % (0.0-4.0); HEMOGLOBIN 9.3 GM/DL (11.6-15.3); LYMPH % 13.8 % (9.0-44.0); LYMPHOCYTE # 1.2 TH/MM3 (1.0-4.8); MEAN CELL VOLUME 93.1 FL (80.0-100.0); MEAN CORPUSCULAR HEMOGLOBIN 30.9 PG (27.0-34.0); MEAN CORPUSCULAR HGB CONC 33.2 % (32.0-36.0); MONO % 17.8 % (0.0-8.0); MONOCYTE # 1.6 TH/MM3 (0-0.9); NEUT % 63.4 % (16.0-70.0); PLATELET COUNT 205 TH/MM3 (150-450); RED BLOOD COUNT 3.01 MIL/MM3 (4.00-5.30); RED CELL DISTRIBUTION WIDTH 17.1 % (11.6-17.2); WHITE BLOOD COUNT 8.7 TH/MM3 (4.0-11.0)
[2018-05-03 05:23] LABS: BICARBONATE 22.3 MEQ/L (21.0-32.0); CALCIUM 7.6 MG/DL (8.5-10.1)
[2018-05-03 05:26] LABS: CREATININE 1.1 MG/DL (0.50-1.00)
[2018-05-03] MEDS: SODIUM CHLOR 0.45% 1000 ML INJ 1,000 ML IV SCH (08:33)
[2018-05-03] MEDS: IRON SUCROSE INJ 100 MG in SODIUM CHLORIDE 0.9% INJ 100 ML IV SCH (10:07)
[2018-05-03] MEDS: SODIUM CHLORIDE 0.9% FLUSH 10 ML FLUSH IV FLUSH SCH ×2 (10:08→20:35)
[2018-05-03] MEDS: DOCUSATE SODIUM 50 MG/SENNA 8.6 MG TAB PO SCH ×2 (10:08→20:34)
--- NOTE | 2018-05-03 11:01 | HHI.PR ---
Subjective Remarks Patient seen and evaluated in follow-up for sepsis with urinary tract infection. Doing better. Blood pressure improved. Hemoglobin improved after blood transfusion. Patient requiring IV iron due to severe anemia iron deficiency Discussed with patient and son at bedside Objective Vitals Vital Signs Date Time Temp Pulse Resp B/P (MAP) Pulse Ox O2 Delivery O2 Flow Rate FiO2 05/03/18 07:30 96 Nasal Cannula 2.00 05/03/18 06:00 84 05/03/18 05:00 85 05/03/18 04:00 89 05/03/18 04:00 97.6 82 21 129/62 (84) 95 05/03/18 03:00 85 05/03/18 02:00 86 05/03/18 01:00 86 05/03/18 00:00 96 05/03/18 00:00 99.2 96 24 168/68 (101) 97 05/02/18 23:30 96 22 181/100 (127) 100 05/02/18 23:00 83 05/02/18 22:00 93 05/02/18 21:02 94 29 154/59 (90) 05/02/18 21:00 93 05/02/18 20:45 86 25 137/64 (88) 100 05/02/18 20:30 100 Nasal Cannula 2.00 05/02/18 20:30 84 25 136/61 (86) 100 05/02/18 20:15 84 23 129/57 (81) 100 05/02/18 20:00 98.9 84 24 134/60 (84) 100 05/02/18 20:00 96 05/02/18 19:30 86 25 121/59 (79) 100 05/02/18 19:15 86 23 115/56 (75) 100 05/02/18 19:00 84 30 115/57 (76) 100 05/02/18 19:00 64 05/02/18 18:04 91 05/02/18 17:00 90 05/02/18 16:30 80 27 117/61 (79) 100 05/02/18 16:15 78 21 111/53 (72) 100 05/02/18 16:00 78 23 109/52 (71) 100 05/02/18 16:00 93 05/02/18 15:45 78 20 110/55 (73) 100 05/02/18 15:30 76 19 109/52 (71) 100 05/02/18 15:15 80 21 113/52 (72) 100 05/02/18 15:00 80 05/02/18 15:00 76 20 103/50 (67) 100 05/02/18 14:45 76 22 107/51 (69) 100 05/02/18 14:30 76 18 104/48 (66) 100 05/02/18 14:15 76 21 87/43 (58) 100 05/02/18 14:10 77 05/02/18 14:00 78 16 102/49 (66) 100 05/02/18 13:59 98.3 77 22 102/49 100 05/02/18 13:49 78 27 94/48 (63) 100 05/02/18 13:44 98.2 78 25 94/48 05/02/18 13:00 76 05/02/18 13:00 84 26 89/44 (59) 100 05/02/18 12:24 88 05/02/18 12:00 80 26 98/50 (66) 05/02/18 12:00 80 26 98/50 (66) 05/02/18 11:00 86 05/02/18 11:00 78 27 93/55 (68) 100 I/O 05/02/18 05/02/18 05/02/18 05/03/18 05/03/18 05/03/18 07:00 15:00 23:00 07:00 15:00 23:00 Intake Total 3967 ml 1153 ml 730 ml 240 ml Output Total 725 ml 551 ml 950 ml 1300 ml Balance 3242 ml 602 ml -220 ml -1060 ml Intake Oral 480 ml 480 ml 200 ml 240 ml IV Total 3487 ml 653 ml 130 ml Packed Cells 400 ml Blood Product IV Normal Saline Flush 20 ml Output Urine Total 725 ml 550 ml 950 ml 1300 ml Stool Total 1 ml # Bowel Movements 0 0 Result Diagram: 05/03/1844405/03/18442 Objective Remarks GENERAL: This is a well-nourished, well-developed patient, in no apparent distress. CARDIOVASCULAR: Regular rate and rhythm with systolic murmur RESPIRATORY: Clear to auscultation. Breath sounds equal bilaterally. No wheezes , rales, or rhonchi. GASTROINTESTINAL: Abdomen soft, non-tender, nondistended. Normal active bowel sounds MUSCULOSKELETAL: Extremities without clubbing, cyanosis, or edema. NEURO: Alert & Oriented x4 to person, place, time, situation. Moves all ext x4 A/P Problem List: (1) Severe sepsis ICD Code: A41.9 - Sepsis, unspecified organism; R65.20 - Severe sepsis without septic shock Status: Acute Plan: Secondary to urinary tract infection with gram-negative pita Leukocytosis and hypotension improved Continue Zosyn (2) UTI (urinary tract infection) ICD Code: N39.0 - Urinary tract infection, site not specified Status: Acute Plan: Gram-negative pita, sensitivities and identification pending Continue empiric Zosyn (3) Renal failure ICD Code: N19 - Unspecified kidney failure Status: Acute (4) Anemia ICD Code: D64.9 - Anemia, unspecified Status: Acute Plan: Severe iron deficiency anemia IV iron x2/3d Patient denies any intestinal bleeding Hemoglobin improved and hypotension better patient admits increased fatigue over the last several months outpatient endoscopy recommended family and patient agreed (5) Murmur, cardiac ICD Code: R01.1 - Cardiac murmur, unspecified Plan: Patient with a history of coronary disease, follow-up echocardiogram Follow-up blood cultures Patient does not recall a murmur in her medical history Discharge Planning MedSurg unit Out of bed ad angelo. Likely discharge in a.m. on oral antibiotics pending cultures Problem Qualifiers (1) UTI (urinary tract infection): Qualified Codes: N39.0 - Urinary tract infection, site not specified (2) Renal failure: Qualified Codes: N17.9 - Acute kidney failure, unspecified (3) Anemia: Qualified Codes: D64.9 - Anemia, unspecified Eva Jose MD May 03, 2018 11:00
--- NOTE | 2018-05-03 16:37 | ECHRPT ---
Indication: SHORTNESS OF BREATH CONCLUSIONS The left ventricular systolic function is normal with an estimated ejection fraction in the range of 60-65%. Doppler parameters are consistent with impaired left ventricular relaxtion (grade 1 diastolic dysfun ction). Moderate mitral valve regurgitation. Mild to moderate aortic valve stenosis ( peak grad 39, mean grad 18, DEBRA 0.5 which may be falsely lo w based on LVOT measurements) Mild aortic valve regurgitation. There is mild to moderate tricuspid valve regurgitation. There is estimated moderate pulmonary hypertension present (range 50-60 mmHg). BP: 129 / 62 HR: 89 Rhythm: Sinus MEASUREMENTS (Male / Female) Normal Values Technical Quality:Fair 2D ECHO LV Diastolic Diameter PLAX 3.9 cm 4.2 - 5.9 / 3.9 - 5.3 cm LV Systolic Diameter PLAX 2.8 cm IVS Diastolic Thickness 1.4 cm 0.6 - 1.0 / 0.6 - 0.9 cm LVPW Diastolic Thickness 1.4 cm 0.6 - 1.0 / 0.6 - 0.9 cm LV Relative Wall Thickness 0.7 RV Internal Dim ED PLAX 2.7 cm LVOT Diameter 1.4 cm Aortic Root Diameter 3.9 cm LA Systolic Diameter LX 4.2 cm 3.0 - 4.0 / 2.7 - 3.8 cm DOPPLER AV Peak Velocity 290.5 cm/s AV Peak Gradient 33.8 mmHg AV Mean Gradient 17.0 mmHg AV Velocity Time Integral 58.2 cm LVOT Peak Velocity 88.8 cm/s LVOT Peak Gradient 3.2 mmHg LVOT Velocity Time Integral 17.8 cm AV Area Cont Eq vti 0.5 cm AV Area Cont Eq pk 0.5 cm Mitral E Point Velocity 148.0 cm/s Mitral A Point Velocity 175.0 cm/s Mitral E to A Ratio 0.8 LV E' Lateral Velocity 10.6 cm/s Mitral E to LV E' Lateral Ratio 14.0 LV E' Septal Velocity 6.8 cm/s Mitral E to LV E' Septal Ratio 21.7 TR Peak Velocity 323.0 cm/s TR Peak Gradient 41.7 mmHg Right Atrial Pressure 10.0 mmHg Pulmonary Artery Systolic Pressu 51.7 mmHg Right Ventricular Systolic Press 51.7 mmHg PV Peak Velocity 32.3 cm/s PV Peak Gradient 0.4 mmHg FINDINGS LEFT VENTRICLE Normal left ventricular size. Mild concentric left ventricular hypertrophy. The left ventricular systolic function is normal with an estimated ejection fraction in the range of 60-65%. Doppler parameters are consistent with impaired left ventricular relaxtion (grade 1 diastolic dysfun ction). RIGHT VENTRICLE Normal right ventricular size and systolic function. LEFT ATRIUM The left atrial size is mildly dilated. RIGHT ATRIUM The right atrial size is [id number] dilated. ATRIAL SEPTUM No atrial level shunt is demonstrated by color flow Doppler interrogation. AORTA Aortic root mild dilated at 3.9cm. MITRAL VALVE Moderate mitral annular calcification. No mitral valve stenosis. Moderate mitral valve regurgitation. AORTIC VALVE Aortic valve sclerosis is present. Diffuse calcification of the aortic valve. Mild aortic valve regurgitation. Mild to moderate aortic valve stenosis ( peak grad 39, mean grad 18, DEBRA 0.5 which may be falsely lo w based on LVOT measurements) TRICUSPID VALVE There is mild to moderate tricuspid valve regurgitation. There is estimated moderate pulmonary hypertension present (range 50-60 mmHg). The estimated pulmonary arterial pressure is 51.7 mmHg. PULMONARY VALVE No pulmonary valve regurgitation or stenosis. VESSELS The inferior vena cava is normal in size. PERICARDIUM No pericardial effusion. Adán Blanco DO (Electronically Signed) Final Date:03 May 2018 16:35
[2018-05-03] MEDS: METOPROLOL TARTRATE 25 MG TAB PO SCH (20:34)
[2018-05-04] VITALS (25 sets, daily range): BP systolic 112–170; BP diastolic 49–82; PULSE 78–100; RESP 18–33; TEMP 98.2–98.4; O2SAT 95–98
[2018-05-04] MEDS: PIPERACIL-TAZO 2.25 GM PREMIX 50 ML IV SCH ×3 (02:16→14:00)
[2018-05-04] MEDS: DOCUSATE SODIUM 50 MG/SENNA 8.6 MG TAB PO SCH (08:29)
[2018-05-04] MEDS: METOPROLOL TARTRATE 25 MG TAB PO SCH (08:30)
[2018-05-04] MEDS: SODIUM CHLORIDE 0.9% FLUSH 10 ML FLUSH IV FLUSH SCH (08:30)
[2018-05-04] MEDS ORDERED: ASPIRIN EC 81 MG TABEC PO SCH (09:00)
[2018-05-04] MEDS: IRON SUCROSE INJ 100 MG in SODIUM CHLORIDE 0.9% INJ 100 ML IV SCH (09:58)
--- NOTE | 2018-05-04 13:59 | HHI.DCPOC ---
Discharge Care Plan Diagnosis: (1) Severe sepsis (2) UTI (urinary tract infection) (3) Renal failure (4) Anemia (5) Murmur, cardiac Goals to Promote Your Health * To prevent worsening of your condition and complications * To maintain your health at the optimal level Directions to Meet Your Goals Take your medications as prescribed Follow your dietary instruction Follow activity as directed Keep your appointments as scheduled Take your immunizations and boosters as scheduled If your symptoms worsen call your PCP, if no PCP go to Urgent Care Center or Emergency Room Smoking is Dangerous to Your Health. Avoid second hand smoke Call the 24-hour hour crisis hotline for domestic abuse at Abhishek Giron May 04, 2018 13:59
[2018-05-04] MEDS ORDERED: BACT800T5 PO (14:04)
--- NOTE | 2018-05-04 14:05 | HHI.FF ---
Face to Face Verification Diagnosis: (1) Severe sepsis (2) UTI (urinary tract infection) (3) Renal failure (4) Anemia Physical Therapy Order: Evaluate and Treat, Improve ambulation, Strength and gait training Home Health Nursing Order: Medical education Signs/symptoms of disease process Nursing assessment with vital signs I have seen patient Laura Alvarez on 05/04/18. My clinical findings support the need for the requested home health care services because: Deconditioned w/ increased weakness Limited ability to care for self I certify that my clinical findings support that this patient is homebound because: Unsteady gait/balance Abhishek Giron May 04, 2018 14:05
--- NOTE | 2018-05-04 16:55 | HHI.DS ---
Discharge Summary Admission Date May 03, 2018 at 10:59 Discharge Date: May 04, 2018 Admitting Diagnosis Sepsis, uti, anemia (1) Severe sepsis ICD Code: A41.9 - Sepsis, unspecified organism; R65.20 - Severe sepsis without septic shock Status: Acute (2) UTI (urinary tract infection) ICD Code: N39.0 - Urinary tract infection, site not specified Status: Acute (3) Renal failure ICD Code: N19 - Unspecified kidney failure Status: Acute (4) Anemia ICD Code: D64.9 - Anemia, unspecified Status: Acute (5) Murmur, cardiac ICD Code: R01.1 - Cardiac murmur, unspecified Procedures ECHOCARDIOGRAM CONCLUSIONS The left ventricular systolic function is normal with an estimated ejection fraction in the range of 60-65%. Doppler parameters are consistent with impaired left ventricular relaxtion ( grade 1 diastolic dysfunction). Moderate mitral valve regurgitation. Mild to moderate aortic valve stenosis ( peak grad 39, mean grad 18, DEBRA 0.5 which may be falsely low based on LVOT measurements) Mild aortic valve regurgitation. There is mild to moderate tricuspid valve regurgitation. There is estimated moderate pulmonary hypertension present (range 50-60 mmHg). Brief History - From Admission This is a pleasant 87-year-old female patient visiting her son from [place] who presented to the ED with generalized weakness. Patient states that she woke up this morning, had presence of chills and violent rigors, subjective fever, decreased appetite, nausea, vomiting and generalized weakness. Son at bedside and assisting with medical history. Supposedly patient was in the bathroom this morning, had one bout of emesis as well as inability to stand up from toilet due to weakness in her legs. Prior to this morning's episodes patient has been feeling at her baseline, completely independent and able to perform all ADLs per self. Patient does admit to poor appetite today and unable to keep anything down without nausea. Patient denies any recent dysuria , diarrhea, bloody stools or black stools. Does follow with the primary care physician as well as a neighborhood conservation officer back home in [place], last seen within the month with no changes to her medicines. Upon presentation patient's hemoglobin 9.0, patient denies any history of anemia although she vaguely remembers that she may have "low blood levels in the past". Does admit to a history of E. coli in her stool in the past. CBC/BMP: 05/03/18 0445 05/03/18 0443 Significant Findings Laboratory Tests Test 05/02/18 05:45 05/03/18 04:43 05/03/18 04:45 Red Blood Count 2.35 MIL/MM3 (4.00-5.30) 3.01 MIL/MM3 (4.00-5.30) Hemoglobin 7.6 GM/DL (11.6-15.3) 9.3 GM/DL (11.6-15.3) Hematocrit 22.3 % (35.0-46.0) 28.0 % (35.0-46.0) Neutrophils (%) (Auto) 73.7 % (16.0-70.0) Monocytes (%) (Auto) 12.8 % (0.0-8.0) 17.8 % (0.0-8.0) Monocytes # (Auto) 1.3 TH/MM3 (0-0.9) 1.6 TH/MM3 (0-0.9) Blood Urea Nitrogen 32 MG/DL (7-18) 25 MG/DL (7-18) Creatinine 1.30 MG/DL (0.50-1.00) 1.10 MG/DL (0.50-1.00) Total Protein 5.6 GM/DL (6.4-8.2) Albumin 2.6 GM/DL (3.4-5.0) Calcium Level 7.5 MG/DL (8.5-10.1) 7.6 MG/DL (8.5-10.1) Aspartate Amino Transf (AST/SGOT) 71 U/L (15-37) Alanine Aminotransferase (ALT/SGPT) 66 U/L (10-53) Chloride Level 109 MEQ/L (98-107) 110 MEQ/L (98-107) Estimat Glomerular Filtration Rate 39 ML/MIN (>89) 47 ML/MIN (>89) Eosinophils (%) (Auto) 4.4 % (0.0-4.0) Imaging Last Impressions Renal Ultrasound 05/02/18 0000 Signed Impressions: CONCLUSION: 1. Bilateral renal cysts. No solid lesions or hydronephrosis. Chest X-Ray 05/01/18 1311 Signed Impressions: CONCLUSION: Cardiomegaly with minimal basilar atelectasis or scarring. No effusion. No pneu mothorax. Abdomen/Pelvis CT 05/01/18 0000 Signed Impressions: CONCLUSION: 1. No acute findings. Colonic diverticulosis. Advanced degenerative changes in the spine. No obstructive uropathy or bowel obstruction identified. Previous b ilateral hip replacement. PE at Discharge GENERAL: Well-developed, well-nourished, in no acute distress. alert and orientated HEENT: Head is normocephalic without any lesions or masses noted. Facial features are symmetric. Eyes: Extraocular muscles are intact. Conjunctivae were clear. NECK: Supple without any masses. Trachea midline no deviation. No JVD, CARDIAC: Regular rhythm, regular rate. S1/S2 are heard. 2/6 ejection murmur, no gallops or rubs. LUNGS: Clear to auscultation bilaterally. No wheeze, rhonchi or rales. No use of accessory muscles on inspiration or expiration. ABDOMEN: Soft, nontender. Nondistended. Bowel sounds heard in all 4 quadrants. No organomegaly or masses. Negative rebound, negative guarding EXTREMITIES: No edema, pulses are equal bilaterally. No cyanosis or clubbing NEUROLOGY: Mood and affect appear appropriate. Cranial nerves II through XII grossly intact. Moving all extremities, speech is clear Hospital Course 87-year-old female who is down here visiting her son from [place] presented to the emergency department with generalized weakness. Patient presented with chills, rigors, subjective fever, decreased appetite, nausea vomiting and generalized weakness. Patient was found to have multiple medical problems with sepsis on presentation with urinary tract infection. Patient was admitted to the ICU secondary to critical care management. Patient did have significant hypotension which required 3 L of saline boluses to maintain blood pressure. Patient did present with a blood pressure of 84/38. Patient was started on empirical antibiotics to include vancomycin and Zosyn. Patient was pancultured with blood cultures remained negative for 3 days, urine culture did grow E. coli. Patient did have signs of acute anemia in which she had workup performed which did indicate iron deficiency anemia. Patient was given IV iron during her stay as well as transfused 1 unit packed red blood cells with improvement of her blood pressure. Patient did undergo echocardiogram to evaluate cardiac function secondary to her significant hypotension. Ejection fraction was 60-65% . Did have mild to moderate aortic valve stenosis. Moderate pulmonary hypertension. Patient did tolerate treatment well. She did undergo physical therapy during her stay in the hospital. Who indicated that she could benefit from outpatient physical therapy if needed. Would benefit from a walker at home. Son has required a walker at this time. Patient is clinically stable this time. She responded well to medical management. Cultures did return and her urinary tract infection is pansensitive. Patient was discharged home on Bactrim for continued management. Patient does indicate she has a follow-up with her neighborhood conservation officer in [place] in 1 week. I notified her that she needs to continue monitor her aortic valve stenosis for further plans and care. We will plan discharge accordingly. Pt Condition on Discharge: Stable Discharge Disposition: Discharge Home Discharge Time: > 30 minutes Discharge Instructions DIET: Follow Instructions for: Heart Healthy Diet Activities you can perform: Regular-No Restrictions Follow up Referrals: PCP Follow-up - 1 Week New Medications: Sulfamethoxazole-Trimethoprim (Bactrim DS) 800-160 Mg Tab 1 TAB PO BID for Infection, #20 TAB 0 Refills Continued Medications: Aspirin (Aspirin) 81 Mg Chew Unknown Dose CHEW DAILY, TAB 0 Refills Furosemide (Furosemide) 20 Mg Tab PO DAILY, #60 TAB 0 Refills Metoprolol Tartrate (Metoprolol Tartrate) 25 Mg Tab Unknown Dose PO BID, #60 TAB 0 Refills Simvastatin (Simvastatin) 5 Mg Tab Unknown Dose PO DAILY for Cholesterol Management, #30 TAB 0 Refills Tramadol (Tramadol) 50 Mg Tab Unknown Dose PO Q4H PRN for PAIN, TAB 0 Refills Abhishek Giron May 04, 2018 16:55
== END 2018-05-04 16:00 | disposition home or self-care (01) | DRG 872 ==
LOC: PHED 13:07 → PHEDA 16:34 → PHICU 17:41 → OBSVTOIN 05-03 10:59
PROVIDERS: ADMIT Hospitalist; ATTEND Hospitalist
PROC: 30233N1 Transfusion of Nonautologous Red Blood Cells into Peripheral Vein, Percutaneous Approach (ICD-10-PCS; principal; 2018-05-02)
DX: A41.51 Sepsis due to Escherichia coli [E. coli] (principal); N17.9 Acute kidney failure, unspecified; I27.20 Pulmonary hypertension, unspecified; N39.0 Urinary tract infection, site not specified; I08.3 Combined rheumatic disorders of mitral, aortic and tricuspid valves; R65.20 Severe sepsis without septic shock; I10 Essential (primary) hypertension; K57.30 Diverticulosis of large intestine without perforation or abscess without bleeding; I25.10 Atherosclerotic heart disease of native coronary artery without angina pectoris; D50.9 Iron deficiency anemia, unspecified; E78.5 Hyperlipidemia, unspecified; Z85.43 Personal history of malignant neoplasm of ovary; Z95.1 Presence of aortocoronary bypass graft; Z96.643 Presence of artificial hip joint, bilateral; Z96.653 Presence of artificial knee joint, bilateral
CPT/HCPCS: 36430; 71045; 74177; 76775; 80048; 80053; 81001; 82728; 83540; 83550; 83605; 83735; 83880; 84100; 84443; 85025; 85610; 85730; 86850; 86900; 86901; 86920; 87040; 87077; 87086; 87186; 93005; 93306; G8987-GP; G8988-GP; J1756; J2543; J3370; J7030; J7050; P9016; Q9967